=== PATIENT | female | born 1990 | race Native Hawaiian/Other Pacific Islander ===

== ENCOUNTER 2019-01-30 09:26 | Outpatient (CLI) | payer OTHER ==
[2019-01-30 10:05] LABS: PLATELET COUNT 342 K/uL (152-353)
[2019-01-30 10:41] LABS: POTASSIUM 3.9 mmol/L (3.6-5.2)
== END 2019-01-30 23:22 | disposition home or self-care (01) ==
LOC: LABW 09:26
PROVIDERS: Nurse Practitioner
DX: R53.83 Other fatigue (principal)
CPT/HCPCS: 36415; 80053; 82607; 82746; 83540; 83550; 84443; 85027

== ENCOUNTER 2021-11-03 14:44 | Outpatient (CLI) | payer OTHER | END 2021-11-03 19:03 | disposition home or self-care (01) | LOC: LABW 14:44 | PROVIDERS: ATTEND Family Medicine | DX: Z34.82 Encounter for supervision of other normal pregnancy, second trimester (principal) ==

== ENCOUNTER 2021-11-09 12:01 | Emergency (ER) | payer OTHER ==
[~2021-11-09] VITALS: Ht 157.5 cm; Wt 105.2 kg
[2021-11-09 12:55] LABS: PLATELET COUNT 267 K/uL (152-353)
[2021-11-09 15:35] VITALS: BP 136/85; TEMP 98.2
== END 2021-11-09 15:35 | disposition home or self-care (01) ==
LOC: ED 12:01
PROVIDERS: Emergency Medicine Emergency Medical Services
DX: O20.0 Threatened abortion (principal); Z3A.01 Less than 8 weeks gestation of pregnancy
CPT/HCPCS: 81002; 84702; 85027; 86850; 86900; 86901; 96360; 99284

== ENCOUNTER 2022-12-14 12:07 | Outpatient (CLI) | payer OTHER ==
[2022-12-14 13:08] LABS: PLATELET COUNT 286 K/uL (152-353)
[2022-12-14 13:26] LABS: POTASSIUM 3.6 mmol/L (3.6-5.2)
== END 2022-12-14 20:19 | disposition home or self-care (01) ==
LOC: LABW 12:07
PROVIDERS: ATTEND Physician Assistant
DX: R53.83 Other fatigue (principal); M79.10 Myalgia, unspecified site; Z13.88 Encounter for screening for disorder due to exposure to contaminants; R94.5 Abnormal results of liver function studies
CPT/HCPCS: 36415; 80053; 80074; 83655; 84436; 84443; 84480; 85027; 85652; 86038; 86140; 86431

== ENCOUNTER 2022-12-22 08:35 | Outpatient (CLI) | payer OTHER | END 2022-12-22 18:56 | disposition home or self-care (01) | LOC: US 08:35 | PROVIDERS: ATTEND Nurse Practitioner | DX: R74.8 Abnormal levels of other serum enzymes (principal); R10.11 Right upper quadrant pain ==